=== PATIENT | male | born 1980 | race Caucasian/White ===

== ENCOUNTER 2021-07-16 09:51 | Outpatient (REF) | payer BC, SELFPAY ==
[2021-07-16 12:01] LABS: Alanine Aminotransferase 28 U/L (0-40); Anion Gap 12 (12-20); Aspartate Amino Transferase 22 U/L (5-37); Blood Urea Nitrogen 12 mg/dL (9-16); Calcium 9.6 mg/dL (8.4-10.2); Carbon Dioxide 31 mmol/L (22-29); Chloride 99 mmol/L (96-108); Cholesterol 239 mg/dL; Estimated Glomerular Filt Rate > 60; Glucose Fasting 96 mg/dL (60-99); HDL Cholesterol 53 mg/dL; LDL Cholesterol Calculated 167 mg/dl; Sodium 138 mmol/L (135-145); Triglycerides 98 mg/dL
== END 2021-07-16 09:52 | disposition home or self-care (01) ==
LOC: HO.HMGCLDS 09:51
PROVIDERS: PCP Internal Medicine; Visit Provider Internal Medicine
DX: Z00.01 Encounter for general adult medical examination with abnormal findings (principal); E78.5 Hyperlipidemia, unspecified; H81.02 Meniere's disease, left ear; I10 Essential (primary) hypertension; L40.9 Psoriasis, unspecified
CPT/HCPCS: 36415; 80048; 80061; 84450; 84460

== ENCOUNTER 2022-10-26 10:19 | Outpatient (REF) | payer BC, SELFPAY ==
[2022-10-26 11:56] LABS: Cholesterol 240 mg/dL; Glucose Fasting 99 mg/dL (60-99); HDL Cholesterol 46 mg/dL; LDL Cholesterol Calculated 174 mg/dl; Triglycerides 102 mg/dL; Vitamin D 25-OH Total 68.3 ng/mL (>30)
== END 2022-10-26 10:20 | disposition home or self-care (01) ==
LOC: HO.HMGCLDS 10:19
PROVIDERS: PCP Internal Medicine; Visit Provider Internal Medicine
DX: Z00.01 Encounter for general adult medical examination with abnormal findings (principal); E78.5 Hyperlipidemia, unspecified
CPT/HCPCS: 36415; 80061; 82306; 82947

== ENCOUNTER 2024-01-12 07:57 | Outpatient (AMB) | payer BC, SELFPAY ==
[2024-01-12 07:59] VITALS: BP 120/70; PULSE 75; O2SAT 96; BMI 26.0
--- NOTE | 2024-01-12 07:59 | A.OFFPC_ITS ---
Vital Signs 01/12/24 07:59 Height 5 ft 7 in Weight 166 lb BMI 26.0 BP 120/70 Blood Pressure Location Rt brachial Position Sitting Pulse 75 Pulse Source Pulse Oximeter Pulse Oximetry (%) 96 Oxygen Delivery Method Room Air Intake Visit Reasons: Adult Annual Exam Intake Note: Pt is here today for PE. Allergies penicillin V Adverse Reaction (Unknown, Verified 01/12/24 08:21) unknown Medication List - Last Reconciled 01/12/24 by Anabell Gutierrez MD cholecalciferol (vitamin D3) 25 mcg PO DAILY fluticasone propionate 50 mcg/actuation (Flonase Allergy Relief) 1 spray intranasal DAILY loratadine 10 mg PO DAILY multivitamin 1 tab PO DAILY Tobacco use date assessed: 01/12/24 Dental Screening Dental Screen Date: 01/12/24 Did you have a dental visit in the last 12 months?: Yes Did you have a dental problem in the last 6 months where you did not have access to dental care?: No Was dental information given to patient?: Patient has dentist HPI Adult Annual Exam HPI Details 43-year-old Male here today for physical exam. He has hyperlipidemia currently not on any medications. Has not yet had his colonoscopy screening wants to do Cologuard testing. He is up-to-date with his COVID vaccination, gets yearly flu shot and up to date with his Tdap. He has Meniere's disease previously was being seen by Dr. Nassar, has not had any further episodes of dizziness or ringing but does get occasional fluctuation in his ear in his left ear. He sees [facility] for psoriasis which is controlled on medication [facility] Medical History (Updated 01/12/24 @ 08:27 by Anabell Gutierrez MD) Meniere's disease of left ear Dyslipidemia Psoriasis Surgical History H/O wisdom tooth extraction Family History Maternal Grandfather CAD (coronary artery disease) Mother Hypercholesterolemia Father Diabetes mellitus Social History (Updated 01/12/24 @ 08:34 by Anabell Gutierrez MD) Housing: Apartment Alcohol intake: current Alcohol intake frequency: 0-2 drinks per day Alcohol type: beer Patient Tobacco Use Status: Former Tobacco user Years Smoked: 15 yrs e-Cigarette/Vaping Use: Never Used Substance Use Type: Marijuana service: No Current occupational status: employed Cognitive needs: No Hearing needs: No Vision needs: Yes Questionnaire PHQ-9 Over the last 2 weeks, how often have you been bothered by any of the following problems? 1. Little interest or pleasure in doing things: not at all 2. Feeling down, depressed, or hopeless: not at all 3. Trouble falling or staying asleep, or sleeping too much: not at all 4. Feeling tired or having little energy: not at all 5. Poor appetite or overeating: not at all 6. Feeling bad about yourself - or that you are a failure or have let yourself or your family down: not at all 7. Trouble concentrating on things, such as reading the newspaper or watching television: not at all 8. Moving or speaking so slowly that other people could have noticed. Or the opposite - being so fidgety or restless that you have been moving around a lot more than usual: not at all 9. Thoughts that you would be better off or of hurting yourself in some way: not at all Total score: 0 Depression Screening Interpretation: Negative Depression Screening Done: Yes 36700 - PHQ-9 Billing: Yes Source: Developed by Drs. Pietro Holland, Fiona Claros, Kvng Vazquez and colleagues, with an educational cait from [employer]. Thrive Questionnaire Date Thrive assessed: 01/12/24 I am a: Patient What is your living situation today?: I have a steady place to live Within the past 12 months, did the food you bought not last and you didn't have the money to get more?: Never true Within the past 12 months, did you worry whether your food would run out before you got money to buy more?: Never true Do you have trouble paying for medicines?: No Do you have trouble getting transportation to medical appointments?: No Do you have trouble paying your heating and electricity bill?: No Do you have trouble taking care of your child, family member or friend?: No Do you have trouble with day-to-day activities such as bathing, preparing meals, shopping, managing finances, etc.?: No Are you currently unemployed and looking for a job?: No Are you interested in more education?: No THRIVE Score: 0 AUDIT C Alcohol Use Questionnaire (AUDIT-C) 1. How often do you have a drink containing alcohol?: 4 or more times a week 2. How many drinks containing alcohol do you have on a typical day when you are drinking?: 1 or 2 3. How often do you have six or more drinks on one occasion?: Never Total Score: 4 GEENA-7 AMB Questionnaire GEENA-7 Date GEENA - 7 assessed: 01/12/24 Feeling nervous, anxious, or on edge: 0 = Not at all Not being able to stop or control worryin = Not at all Worrying too much about different things: 0 = Not at all Trouble relaxin = Not at all Being so restless that it is hard to sit still: 0 = Not at all Becoming easily annoyed or irritable: 0 = Not at all Feeling afraid as if something awful might happen: 0 = Not at all Total GEENA-7 score (0-4 normal; 5-9 mild; 10-14 moderate; 15-21 severe): 0 Source: Developed by Drs. Pietro Holland, Fiona Claros, Kvng Vazquez and colleagues, with an educational cait from [employer]. GEENA-7 Assessment Billing GEENA-7 Assessment Tool: GEENA-7 Assessment 80448 Review of Systems Const Denies headache(s), Denies malaise and Denies weakness Eyes Details: Sees [facility] Reports irritation, Reports itchy eyes and Reports requires corrective lenses ENT Denies ear discharge, Denies otalgia, Denies headache(s), Denies hoarseness, Denies nasal congestion, Denies post nasal drip and Denies tinnitus Card Denies chest pain, Denies chest pain with activity, Denies irregular heart rhythm, Denies lightheadedness, Denies dyspnea and Denies dyspnea on exertion Resp Denies cough, Denies pain on inspiration, Denies dyspnea, Denies dyspnea on exertion and Denies wheezing GI Denies abdominal pain, Denies melena, Denies hematochezia, Denies change in bowel habits and Denies heartburn Denies hematuria, Denies difficulty urinating, Denies penile discharge and Denies testicular mass Musc Reports no additional complaints Skin/Breast Reports as per HPI Neuro Reports no additional complaints, Denies headache(s), Denies lack of coordination, Denies focal weakness, Denies Other visual disturbances, Denies convulsions, Denies Sensory deficit (Neuro), Denies paresthesias and Denies weakness Psych Reports no additional complaints Endo Reports no additional complaints Selvin/Lymph Reports no additional complaints Aller/Immun Reports itchy eyes and Denies wheezing Physical exam (Primary Care) Vital Signs: Last Vital Signs Pulse 75 01/12/24 07:59 BP 120/70 01/12/24 07:59 Pulse Ox 96 01/12/24 07:59 Oxygen Delivery Method Room Air 01/12/24 07:59 BMI result Body Mass Index 26.0 Tobacco/Smoking Status: Tobacco use Status Tobacco use date assessed 01/12/24 01/12/24 08:04 Patient Tobacco Use Status Former Tobacco user 01/12/24 08:04 e-Cigarette/Vaping Use Never Used 01/12/24 08:04 Depression Screening Interpretation: Negative Thrive Assessment: Date of Thrive Assessment Date Thrive assessed 10/26/22 01/12/24 08:04 Const General: cooperative, no acute distress and alert Orientation/consciousness: patient oriented x3 HENMT Other: Some fluctuating hearing in left ear, no dizziness Head: Yes normocephalic Ears: hearing grossly normal bilaterally, external ears normal, TM's normal bilaterally and EAC's normal General nose exam: Normal external nose present, Normal nasal mucous membranes and turbinates present and No nasal discharge present Face and sinus: Yes sinuses nontender and Yes face symmetric Mouth: Normal oral and palatal mucosa present, lip normal, tongue normal, oropharynx normal and moist mucous membranes Teeth and gingiva: dentition normal and gingiva normal Throat: Yes posterior oropharynx normal Eyes Conjunctivae: conjunctivae normal Sclerae: sclerae normal Pupils: Equal, round and reactive pupils present EOM: EOMs intact bilaterally Neck Neck: Yes full ROM and Yes no lymphadenopathy Thyroid: Thyroid normal Carotids: normal carotid upstroke Lymphatic: no lymphadenopathy noted Chest Chest palpation & inspection: normal inspection of the chest Resp Effort & Inspection: normal respiratory effort and able to speak in complete sentences Auscultation: clear to auscultation bilaterally Cardio Rate: regular rate Rhythm: regular rhythm Heart sounds: S1 normal heart sound present and S2 normal heart sound present GI Inspection: Yes normal to inspection Palpation (GI): Soft to palpation Auscultation: normal bowel sounds General: Yes no CVA tenderness Male General Exam: Yes normal external exam, No hernia and No inguinal lymphadenopathy Back/Spine/Pelvis Back: no CVA tenderness Skin Other: erythematous scaly patch on elbow, lower back Neuro General: patient oriented x3, gait normal, moves all extremities, no focal motor deficits and CN's II-XI intact bilaterally Cranial nerves: Yes Equal, round and reactive pupils present Cognition (Neuro): normal cognition Gait exam (Neuro): Normal gait present Motor exam (neuro): 5/5 motor strength present throughout Sensory Exam: No Sensory deficit (Neuro) Extrem General: Yes normal to inspection, Yes full ROM, Yes no pedal edema and Yes normal gait Psych Appearance: grossly normal and well kempt Mental Status: mental status grossly normal Speech and movement: Normal speech and movement present Affect: normal affect Attitude: cooperative Thought process: Normal thought process present Thought content: Normal thought content present Assessment and Plan Assessment & Plan (1) Annual visit for general adult medical examination with abnormal findings: Code(s): Z00.01 - Encounter for general adult medical examination with abnormal findings Plan: Will check appropriate labs. Continue regular dental visit every 6 months and regular eye exams, sees [facility]. Instructed to do self-testicular exam check for any mass, up-to-date with his vaccinations due for colon cancer screening, patient would like to do Cologuard testing but will check with insurance 1st if covered, and will let me know (2) Dyslipidemia: Code(s): E78.5 - Hyperlipidemia, unspecified Plan: Fasting lipid panel ordered. Stressed importance of following low-cholesterol diet and getting regular exercise (3) Encounter for screening for diabetes mellitus: Code(s): Z13.1 - Encounter for screening for diabetes mellitus Plan: Fasting blood sugar ordered (4) Meniere's disease of left ear: Comment: sees Dr Hugo Nassar Code(s): H81.02 - Meniere's disease, left ear Plan: Currently not taking Maxzide and nortriptyline anymore, asymptomatic (5) Psoriasis: Comment: Followed at [facility] Code(s): L40.9 - Psoriasis, unspecified Plan: Followed by [facility] Orders: Orders Aspartate Amino Transferase Today E78.5 - Hyperlipidemia, unspecified, Z13.1 - Encounter for screening for diabetes mellitus Basic Metabolic Panel Fasting Today E78.5 - Hyperlipidemia, unspecified, Z13.1 - Encounter for screening for diabetes mellitus Vitamin D 25-OH Total Today E78.5 - Hyperlipidemia, unspecified, Z13.1 - Encounter for screening for diabetes mellitus Lipid Panel Today E78.5 - Hyperlipidemia, unspecified, Z13.1 - Encounter for screening for diabetes mellitus Alanine Aminotransferase Today E78.5 - Hyperlipidemia, unspecified, Z13.1 - Encounter for screening for diabetes mellitus Coding Level of Care Code Est Pt Prev Care 40-64y(74803) Diagnoses Annual visit for general adult medical examination with abnormal findings Z 00.01 Dyslipidemia E78.5 Encounter for screening for diabetes mellitus Z13.1 Meniere's disease of left ear H81.02 Psoriasis L40.9 Additional Codes GEENA-7 Assessment Billing - GEENA-7 Assessment Tool: GEENA-7 Assessment 51100 ([id number])
== END 2024-01-12 08:43 | disposition home or self-care (01) ==
PROVIDERS: PCP Internal Medicine; Visit Provider Internal Medicine
DX: Z00.00 Encounter for general adult medical examination without abnormal findings (principal); E78.5 Hyperlipidemia, unspecified; Z13.1 Encounter for screening for diabetes mellitus; H81.02 Meniere's disease, left ear; L40.9 Psoriasis, unspecified
CPT/HCPCS: 99396

== ENCOUNTER 2024-01-12 08:44 | Outpatient (REF) | payer BC, SELFPAY ==
[2024-01-12 11:18] LABS: Alanine Aminotransferase 42 U/L (0-40); Anion Gap 14 (12-20); Aspartate Amino Transferase 29 U/L (5-37); Blood Urea Nitrogen 15 mg/dL (9-16); Calcium 9.6 mg/dL (8.4-10.2); Carbon Dioxide 27 mmol/L (22-29); Chloride 105 mmol/L (96-108); Cholesterol 251 mg/dL (<200); Estimated Glomerular Filt Rate > 60; Glucose Fasting 103 mg/dL (60-99); HDL Cholesterol 46 mg/dL (>40); LDL Cholesterol Calculated 180 mg/dL (<100); Potassium 4.6 mmol/L (3.3-5.1); Sodium 141 mmol/L (135-145); Triglycerides 129 mg/dL (<150)
[2024-01-12 11:23] LABS: Vitamin D 25-OH Total 58.3 ng/mL (>30)
== END 2024-01-12 08:45 | disposition home or self-care (01) ==
LOC: HO.HMGCLDS 08:44
PROVIDERS: PCP Internal Medicine; Visit Provider Internal Medicine
DX: E78.5 Hyperlipidemia, unspecified (principal); Z13.1 Encounter for screening for diabetes mellitus
CPT/HCPCS: 36415; 80048; 80061; 82306; 84450; 84460

== ENCOUNTER 2025-02-01 08:38 | Outpatient (REF) | payer BC, SELFPAY ==
[2025-02-01 13:39] LABS: MANUAL DIFF FLAG NO
[2025-02-01 13:51] LABS: Basophils Absolute Auto 0.1 X10*3/uL (0.0-0.2); Basophils Percent Auto 0.7 % (0-2); Eosinophils Absolute Auto 0.2 X10*3/uL (0.0-0.4); Eosinophils Percent Auto 2.5 % (0-4); Hematocrit 45.4 % (42.0-52.0); Hemoglobin 15.3 g/dl (14.0-18.0); Imm Gran Abs Auto 0.03 X10*3/uL (0.00-0.03); Imm Gran Pct Auto 0.4 % (0.0-0.4); Lymphocytes Absolute Auto 1.7 X10*3/uL (1.2-4.9); Lymphocytes Percent Auto 22.3 % (20-40); Mean Corpuscular HGB Conc 33.7 g/dl (31.0-36.0); Mean Corpuscular Hemoglobin 31.5 pg (27.0-33.0); Mean Corpuscular Volume 93.6 fL (80.0-98.0); Monocytes Absolute Auto 0.7 X10*3/uL (0.1-1.2); Monocytes Percent Auto 9.6 % (2-11); Neutrophils Absolute Auto 4.9 x10*3/uL (2.0-8.3); Neutrophils Percent Auto 64.5 % (45-73); Platelet Count 256 X10*3/uL (160-400); Red Blood Count 4.85 X10*6/uL (4.60-5.80); Red Cell Distribution Width 12.9 % (11.0-16.0); White Blood Count 7.6 X10*3/uL (4.8-10.8)
[2025-02-01 14:06] LABS: Estimated Average Glucose 108 mg/dL; Hemoglobin A1c % 5.4 % (<6.0)
[2025-02-01 14:15] LABS: Alanine Aminotransferase 33 U/L (0-40); Anion Gap 10 (12-20); Aspartate Amino Transferase 29 U/L (5-37); Blood Urea Nitrogen 14 mg/dL (9-16); Calcium 9.4 mg/dL (8.4-10.2); Carbon Dioxide 29 mmol/L (22-29); Chloride 103 mmol/L (96-108); Cholesterol 243 mg/dL (<200); Estimated Glomerular Filt Rate > 60; Glucose Fasting 93 mg/dL (60-99); HDL Cholesterol 47 mg/dL (>40); LDL Cholesterol Calculated 171 mg/dL (<100); Potassium 4.3 mmol/L (3.3-5.1); Sodium 138 mmol/L (135-145); Triglycerides 125 mg/dL (<150)
[2025-02-01 14:31] LABS: Vitamin D 25-OH Total 67.5 ng/mL (>30)
== END 2025-02-01 08:39 | disposition home or self-care (01) ==
LOC: HO.HMGCLDS 08:38
PROVIDERS: PCP Internal Medicine; Visit Provider Internal Medicine
DX: Z00.01 Encounter for general adult medical examination with abnormal findings (principal); B35.1 Tinea unguium; L40.9 Psoriasis, unspecified; H81.02 Meniere's disease, left ear; E78.5 Hyperlipidemia, unspecified; Z71.89 Other specified counseling; Z86.39 Personal history of other endocrine, nutritional and metabolic disease; Z13.1 Encounter for screening for diabetes mellitus
CPT/HCPCS: 36415; 80048; 80061; 82306; 83036; 84450; 84460; 85025; 96127

== ENCOUNTER 2025-02-01 08:38 | Outpatient (AMB) | payer BC, SELFPAY ==
--- NOTE | 2025-02-01 08:44 | A.OFFPC_ITS ---
Vital Signs 02/01/25 08:47 Height 5 ft 6 in Weight 165 lb 4 oz BMI 26.7 BP 138/78 Blood Pressure Location Rt brachial Position Sitting Pulse 64 Pulse Source Pulse Oximeter Temp 98.1 F Temp Source Oral Pulse Oximetry (%) 97 Oxygen Delivery Method Room Air Intake Visit Reasons: PE Intake Note: Pt is here for PE, Cologuard- 04/13/24. Allergies penicillin V Adverse Reaction (Unknown, Verified 02/01/25 09:07) unknown Medication List - Last Reconciled 02/01/25 by Anabell Gutierrez MD cholecalciferol (vitamin D3) 25 mcg PO DAILY fluticasone propionate 50 mcg/actuation (Flonase Allergy Relief) 1 spray intranasal DAILY loratadine 10 mg PO DAILY multivitamin 1 tab PO DAILY tapinarof 1% (Vtama) 1 appl topical DAILY Tobacco use date assessed: 02/01/25 Dental Screening Dental Screen Date: 02/01/25 Did you have a dental visit in the last 12 months?: Yes Did you have a dental problem in the last 6 months where you did not have access to dental care?: No Was dental information given to patient?: Patient has dentist HPI PE HPI Details 44-year-old male with history of psorias is, here today for his physical exam. He is being seen at [facility], for his psoriasis as well as getting treatment for onychomycotic toenails both feet, currently taking fluconazole twice a day week. He has history dyslipidemia, tries to control it through diet and exercise. He is up-to-date with his colon cancer screening, with a negative Cologuard done [facility] Medical History (Updated 02/01/25 @ 09:14 by Anabell Gutierrez MD) Onychomycosis Meniere's disease of left ear Dyslipidemia Psoriasis Surgical History H/O wisdom tooth extraction Family History Maternal Grandfather CAD (coronary artery disease) Mother Hypercholesterolemia Father Diabetes mellitus Social History Housing: Apartment Alcohol intake: current Alcohol intake frequency: 0-2 drinks per day Alcohol type: beer Patient Tobacco Use Status: Former Tobacco user Years Smoked: 15 yrs e-Cigarette/Vaping Use: Never Used Substance Use Type: Marijuana service: No Current occupational status: employed Cognitive needs: No Hearing needs: No Vision needs: Yes Questionnaire PHQ-9 Over the last 2 weeks, how often have you been bothered by any of the following problems? 1. Little interest or pleasure in doing things: not at all 2. Feeling down, depressed, or hopeless: not at all 3. Trouble falling or staying asleep, or sleeping too much: not at all 4. Feeling tired or having little energy: not at all 5. Poor appetite or overeating: not at all 6. Feeling bad about yourself - or that you are a failure or have let yourself or your family down: not at all 7. Trouble concentrating on things, such as reading the newspaper or watching television: not at all 8. Moving or speaking so slowly that other people could have noticed. Or the opposite - being so fidgety or restless that you have been moving around a lot more than usual: not at all 9. Thoughts that you would be better off or of hurting yourself in some way: not at all Total score: 0 Depression Screening Interpretation: Negative Depression Screening Done: Yes 00845 - PHQ-9 Billing: Yes Source: Developed by Drs. Pietro Holland, Fiona Claros, Kvng Vazquez and colleagues, with an educational cait from [employer]. Thrive Questionnaire Date Thrive assessed: 01/12/24 I am a: Patient What is your living situation today?: I have a steady place to live Within the past 12 months, did the food you bought not last and you didn't have the money to get more?: Never true Within the past 12 months, did you worry whether your food would run out before you got money to buy more?: Never true Do you have trouble paying for medicines?: No Do you have trouble getting transportation to medical appointments?: No Do you have trouble paying your heating and electricity bill?: No Do you have trouble taking care of your child, family member or friend?: No Do you have trouble with day-to-day activities such as bathing, preparing meals, shopping, managing finances, etc.?: No Are you currently unemployed and looking for a job?: No Are you interested in more education?: No Please select the resources that you would like help with: None Currently or been in a relationship where the following occur: No concerns reported THRIVE Score: 0 AUDIT C Alcohol Use Questionnaire (AUDIT-C) 1. How often do you have a drink containing alcohol?: 4 or more times a week 2. How many drinks containing alcohol do you have on a typical day when you are drinking?: 3 or 4 3. How often do you have six or more drinks on one occasion?: Never Total Score: 5 GEENA-7 AMB Questionnaire GEENA-7 Date GEENA - 7 assessed: 01/12/24 Feeling nervous, anxious, or on edge: 0 = Not at all Not being able to stop or control worryin = Not at all Worrying too much about different things: 0 = Not at all Trouble relaxin = Not at all Being so restless that it is hard to sit still: 0 = Not at all Becoming easily annoyed or irritable: 0 = Not at all Feeling afraid as if something awful might happen: 0 = Not at all Total GEENA-7 score (0-4 normal; 5-9 mild; 10-14 moderate; 15-21 severe): 0 Source: Developed by Drs. Pietro Holland, Fiona Claros, Kvng Vazquez and colleagues, with an educational cait from [employer]. GEENA-7 Assessment Billing GEENA-7 Assessment Tool: GEENA-7 Assessment 04867 Review of Systems Const Denies headache(s), Denies malaise and Denies weakness Eyes Details: Goes to [facility] eye care Reports requires corrective lenses ENT Details: Dental prophylaxis every 6 months Denies ear discharge, Denies otalgia, Denies headache(s), Denies hoarseness, Denies nasal congestion, Denies post nasal drip and Denies tinnitus Card Denies chest pain, Denies chest pain with activity, Denies irregular heart rhythm, Denies lightheadedness, Denies dyspnea and Denies dyspnea on exertion Resp Denies cough, Denies pain on inspiration, Denies dyspnea, Denies dyspnea on exertion and Denies wheezing GI Denies abdominal pain, Denies melena, Denies hematochezia, Denies change in bowel habits and Denies heartburn Denies hematuria, Denies difficulty urinating, Denies penile discharge and Denies testicular mass Musc Reports no additional complaints Skin/Breast Details: Followed at [facility] Reports as per HPI Neuro Reports no additional complaints, Denies headache(s), Denies lack of coordination, Denies focal weakness, Denies Other visual disturbances, Denies convulsions, Denies Sensory deficit (Neuro), Denies paresthesias and Denies weakness Psych Reports no additional complaints Endo Reports no additional complaints Selvin/Lymph Reports no additional complaints Aller/Immun Denies wheezing Physical exam (Primary Care) Vital Signs: Last Vital Signs Temp 98.1 F 02/01/25 08:47 Pulse 64 02/01/25 08:47 BP 138/78 02/01/25 08:47 Pulse Ox 97 02/01/25 08:47 Oxygen Delivery Method Room Air 02/01/25 08:47 BMI result Body Mass Index 26.7 Tobacco/Smoking Status: Tobacco use Status Tobacco use date assessed 02/01/25 02/01/25 08:52 Patient Tobacco Use Status Former Tobacco user 02/01/25 08:44 e-Cigarette/Vaping Use Never Used 02/01/25 08:44 PHQ-9: PHQ-9 Score PHQ-9: Total score 0 02/01/25 09:30 Depression Screening Interpretation: Negative Thrive Assessment: Date of Thrive Assessment Date Thrive assessed 01/12/24 02/01/25 08:44 Currently or been in a relationship where the following occur: No concerns reported Const General: cooperative, no acute distress and alert Orientation/consciousness: patient oriented x3 HENMT Other: Some fluctuating hearing in left ear, no dizziness Head: Yes normocephalic Ears: hearing grossly normal bilaterally, external ears normal, TM's normal bilaterally and EAC's normal General nose exam: Normal external nose present and Normal nasal mucous membranes and turbinates present Face and sinus: Yes face symmetric Mouth: Normal oral and palatal mucosa present, oropharynx normal and moist mucous membranes Eyes Conjunctivae: conjunctivae normal Sclerae: sclerae normal Pupils: Equal, round and reactive pupils present EOM: EOMs intact bilaterally Neck Neck: Yes full ROM and Yes no lymphadenopathy Thyroid: Thyroid normal Carotids: normal carotid upstroke Lymphatic: no lymphadenopathy noted Chest Chest palpation & inspection: normal inspection of the chest Resp Effort & Inspection: normal respiratory effort and able to speak in complete sentences Auscultation: clear to auscultation bilaterally Cardio Rate: regular rate Rhythm: regular rhythm Heart sounds: S1 normal heart sound present and S2 normal heart sound present GI Inspection: Yes normal to inspection Palpation (GI): Soft to palpation Auscultation: normal bowel sounds General: Yes no CVA tenderness Male General Exam: Yes normal external exam, No hernia and No inguinal lymphadenopathy Back/Spine/Pelvis Back: no CVA tenderness Skin Other: erythematous scaly patch on elbow, lower back Neuro General: patient oriented x3, gait normal, moves all extremities, no focal motor deficits and CN's II-XI intact bilaterally Cranial nerves: Yes Equal, round and reactive pupils present Cognition (Neuro): normal cognition Gait exam (Neuro): Normal gait present Motor exam (neuro): 5/5 motor strength present throughout Sensory Exam: No Sensory deficit (Neuro) Extrem General: Yes normal to inspection, Yes full ROM, Yes no pedal edema and Yes normal gait Psych Appearance: grossly normal and well kempt Mental Status: mental status grossly normal Speech and movement: Normal speech and movement present Affect: normal affect Attitude: cooperative Thought process: Normal thought process present Thought content: Normal thought content present Results Reviewed Results Reviewed: suzan: Luis DanielGarrison Age/Sex: 43/M : 1980 Unit#: [id number] Attend Dr: Anabell Gutierrez MD Re01/12/24 Status: DEP REF Location: [facility] Disch: SPEC : [id number] DOLORES: 01/12/24 STATUS: COMP REQ : [id number] RECD: 01/12/[address]: Anabell Gutierrez MD COMP: 01/12/24 ENTERED: 01/12/[address]: ORDERED: Met Prof Fast, AST, ALT, Lipid Panel, Vitamin D 25-OH Test Result Flag Reference Sodium 141 135-145 mmol/L Potassium 4.6 3.3-5.1 mmol/L CL 105 96-108 mmol/L CO2 27 22-29 mmol/L Gap 14 12-20 BUN 15 9-16 mg/dL Creat 0.80 0.5-1.4 mg/dL EGFR > 60 NOTE: For -[place]ian individuals, multiply the result by 1.210. Chronic Kidney Disease: Estimated GFR < 60 mL/min/1.73m2 Severe Kidney Disease: Estimated GFR < 15 mL/min/1.73m2 FBS 103 H 60-99 mg/dL A fasting glucose from 100-125 mg/dl is considered impaired (pre-diabetes). CA 9.6 8.4-10.2 mg/dL AST (GOT) 29 5-37 U/L ALT (GPT) 42 H 0-40 U/L Triglyceride 129 <150 mg/dL Desirable Triglyceride: less than 150 mg/dL Borderline High Triglyceride 150-199 mg/dL High Triglyceride: 200-499 mg/dL Very High Triglyceride: greater than or equal to 5OO mg/dL Cholesterol 251 H <200 mg/dL Desirable Cholesterol: less than 200 mg/dL Borderline High Cholesterol: 200-239 mg/dL High Cholesterol: greater than 239 mg/dL LDL Calculated 180 H <100 mg/dL Desirable LDL: less than 100 mg/dL Near Optimal/Above Optimal LDL: 110-129 mg/dL Borderline High LDL: 130-159 mg/dL High LDL: 160-189 mg/dL Very High LDL: greater than or equal to 190 mg/dL HDL 46 >40 mg/dL Desirable HDL: greater than 40 mg/dL Note: This HDL assay may give artificially low results in patients with liver disease. Vit D 25-OH Tot 58.3 >30 ng/mL Health Based Reference Values* < 20 ng/mL Deficient 20-30 ng/mL Insufficient > 30 ng/mL Sufficient Coding Level of Care Code Est Pt Prev Care 40-64y(04757) Diagnoses Annual visit for general adult medical examination with abnormal findings Z00. Onychomycosis B35.1 Psoriasis L40.9 Meniere's disease of left ear H81.02 Dyslipidemia E78.5 Advanced directives, counseling/discussion Z71.89 Additional Codes GEENA-7 Assessment Billing - GEENA-7 Assessment Tool: GEENA-7 Assessment 51774 ([id number]) PHQ-9 - 06480 - PHQ-9 Billing: Yes ([id number]) Assessment & Plan Assessment & Plan (1) Annual visit for general adult medical examination with abnormal findings: Code(s): Z00.01 - Encounter for general adult medical examination with abnormal findings Plan: asting labs ordered patient. Recommended dental visit every 6 months and regular eye exams, at least every 2 years. Take adequate calcium in diet and vitamin-D 3 at 2000 IU per cap once a day, in addition to weight-bearing exercises to help maintain good muscle tone and weight control. Instructed to do self-testicular exam check for any mass. Up-to-date with his vaccinations. Up-to-date with his colon cancer screening, had a negative Cologuard done in 2023 (2) Onychomycosis: Comment: Big toes bilateral currently being seen at [facility], and on fluconazole twice a week Code(s): B35.1 - Tinea unguium Category: Medical Plan: Currently on fluconazole followed at [facility] (3) Psoriasis: Comment: Followed at [facility] Code(s): L40.9 - Psoriasis, unspecified Category: Medical Plan: Followed by [facility] (4) Meniere's disease of left ear: Comment: sees Dr Hugo Nassar Code(s): H81.02 - Meniere's disease, left ear Category: Medical Plan: Currently asymptomatic, no longer sees ENT (5) Dyslipidemia: Code(s): E78.5 - Hyperlipidemia, unspecified Category: Medical Plan: Reviewed recent fasting lipid profile with patient with her elevated total cholesterol and LDL cholesterol . Reinforced adherence to low-cholesterol diet and regular exercise, at least 30 minutes 3 to 4 times a week. Advised patient to make healthy food choices, eat more fruits, vegetables, whole grains, wild caught fish and low-fat dairy. Limit amount of meat and fried or fatty food products, as well as processed foods and fast foods. Follow-up scheduled with repeat fasting lipid panel in 6 months. (6) Advanced directives, counseling/discussion: Code(s): Z71.89 - Other specified counseling Plan: Initiated the conversation about Advanced Directives. Advanced Directives help patients prepare for current and future decisions about their medical treatment and place of care. Discussed with patient that it is a process where a patients current condition and prognosis are reviewed, their wishes for information regarding their illness are elicited, and likely medical dilemmas are presented and options discussed. Healthcare proxy form completed today. The form can be amended as needed, reviewed yearly and make changes as needed Orders: Orders Hemoglobin A1c 02/01/25 B35.1 - Tinea unguium Complete Blood Count Auto Diff 02/01/25 B35.1 - Tinea unguium Referrals Dermatology Referral B35.1 - Tinea unguium, L40.9 - Psoriasis, unspecified
[2025-02-01 08:47] VITALS: BP 138/78; PULSE 64; TEMP 36.7; O2SAT 97; BMI 26.7
== END 2025-02-01 09:26 | disposition home or self-care (01) ==
LOC: HO.HMCC 08:39
PROVIDERS: PCP Internal Medicine; Visit Provider Internal Medicine
DX: Z00.01 Encounter for general adult medical examination with abnormal findings (principal); B35.1 Tinea unguium; L40.9 Psoriasis, unspecified; H81.02 Meniere's disease, left ear; E78.5 Hyperlipidemia, unspecified; Z71.89 Other specified counseling

== ENCOUNTER 2025-04-30 11:14 | Outpatient (AMB) | payer BC, SELFPAY ==
[2025-04-30 11:20] VITALS: BP 130/80; PULSE 77; RESP 16; TEMP 36.8; O2SAT 99; BMI 26.5
--- NOTE | 2025-04-30 11:20 | MHC.PC.OV ---
Vital Signs 04/30/25 11:20 Height 5 ft 6 in Weight 164 lb BMI 26.5 BP 130/80 Blood Pressure Location Lt brachial Position Sitting Respiration 16 Pulse 77 Pulse Source Pulse Oximeter Temp 98.2 F Temp Source Oral Pulse Oximetry (%) 99 Oxygen Delivery Method Room Air Intake Visit Reasons: rectal bleeding Intake Note: Pt is here today c/o rectal bleeding since yesterday when he wipes ?hemorriods Allergies penicillin V Adverse Reaction (Unknown, Verified 02/01/25 09:07) unknown Medication List - Last Reconciled 04/30/25 by Anabell Gutierrez MD cephalexin 500 mg PO Q8H 7 days cholecalciferol (vitamin D3) 25 mcg PO DAILY fluticasone propionate 50 mcg/actuation (Flonase Allergy Relief) 1 spray intranasal DAILY guselkumab (Tremfya Pen) 100 mg subcut Q8W loratadine 10 mg PO DAILY multivitamin 1 tab PO DAILY tapinarof 1% (Vtama) 1 appl topical DAILY Tobacco use date assessed: 04/30/25 Dental Screening Dental Screen Date: 04/30/25 Did you have a dental visit in the last 12 months?: Yes Did you have a dental problem in the last 6 months where you did not have access to dental care?: No Was dental information given to patient?: Patient has dentist HPI rectal bleeding HPI Details - The patient is a 44-year-old male presenting today with a painful lump in the anorectal region. - The patient noticed a lump in the anorectal area a couple of months ago, initially thought to be a hemorrhoid. - The lump has been fluctuating in size and recently enlarged to the size of a castellanos tomato, causing significant discomfort and pain, especially at night. - The noted presence of bright red bleeding bleeding when he had a bowel movement this morning - The patient is allergic to penicillin, with no specific reaction details known. [facility] Medical History Onychomycosis Meniere's disease of left ear Dyslipidemia Psoriasis Surgical History H/O wisdom tooth extraction Family History Maternal Grandfather CAD (coronary artery disease) Mother Hypercholesterolemia Father Diabetes mellitus Social History Housing: Apartment Alcohol intake: current Alcohol intake frequency: 0-2 drinks per day Alcohol type: beer Patient Tobacco Use Status: Former Tobacco user Years Smoked: 15 yrs e-Cigarette/Vaping Use: Never Used Substance Use Type: Marijuana service: No Current occupational status: employed Cognitive needs: No Hearing needs: No Vision needs: Yes Questionnaire Thrive Questionnaire Date Thrive assessed: 01/12/24 GEENA-7 AMB Questionnaire GEENA-7 Date GEENA - 7 assessed: 01/12/24 Source: Developed by Drs. Pietro Holland, Fiona Claros, Kvng Vazquez and colleagues, with an educational cait from [employer]. Review of Systems Const All systems reviewed & are unremarkable except as noted in HPI and below Physical exam (Primary Care) Vital Signs: Last Vital Signs Temp 98.2 F 04/30/25 11:20 Pulse 77 04/30/25 11:20 Resp 16 04/30/25 11:20 BP 130/80 04/30/25 11:20 Pulse Ox 99 04/30/25 11:20 Oxygen Delivery Method Room Air 04/30/25 11:20 BMI result Body Mass Index 26.5 Tobacco/Smoking Status: Tobacco use Status Tobacco use date assessed 04/30/25 04/30/25 11:26 Patient Tobacco Use Status Former Tobacco user 04/30/25 11:26 e-Cigarette/Vaping Use Never Used 04/30/25 11:26 Thrive Assessment: Date of Thrive Assessment Date Thrive assessed 01/12/24 04/30/25 11:26 Const General: comfortable, no acute distress and alert Neck Neck: Yes full ROM, Yes no lymphadenopathy and Yes supple Cardio Rate: regular rate Rhythm: regular rhythm Heart sounds: S1 normal heart sound present and S2 normal heart sound present GI Inspection: Yes normal to inspection Palpation (GI): Soft to palpation, nontender and no guarding Auscultation: normal bowel sounds Skin Other: Nodular lesion on right side of buttock near anus, with no active drainage, tender to palpation Coding Level of Care Code Est Pt Level 4 (67877) Diagnoses Perianal abscess K61.0 Assessment & Plan Assessment & Plan (1) Perianal abscess: Code(s): K61.0 - Anal abscess Plan: Advised to keep the wound clean, taking warm?Sitz baths, using stool softeners, and eating a high-fiber diet to prevent constipation, referred to general surgery for incision and drainage of abscess. Prescription sent for cephalexin 500 mg to take 1 every 8 hours for 7 days Orders: Referrals General Surgery Referral K61.0 - Anal abscess Medications: New cephalexin 500 mg PO Q8H 21 caps 0RF 7 days
== END 2025-04-30 11:49 | disposition home or self-care (01) ==
LOC: HO.HMCC 11:14
PROVIDERS: PCP Internal Medicine; Visit Provider Internal Medicine
DX: K61.0 Anal abscess (principal)

== ENCOUNTER 2025-05-23 08:59 | Outpatient (AMB) | payer BC, SELFPAY ==
--- NOTE | 2025-05-23 09:00 | MHC.OFFVIS ---
Vital Signs 05/23/25 09:09 Height 5 ft 6 in Weight 158 lb BMI 25.5 BP 128/69 Blood Pressure Location Rt brachial Position Sitting Pulse 82 Intake Visit Reasons: Anal abscess Intake Note: Patient referred by pcp Dr. Gutierrez for Rt perianal abscess. Present for 2mo. Patient c/o: feels bumpy, enlarging painful. Finished Cephalexin course. Denies bleeding, oozing. 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 He said about 2 months ago, he had this swelling and tenderness on the right perianal area. This has that this became severe but this drained spontaneously after about 3 days. He had seen his primary care physician and was placed on antibiotics thereafter He says that this areas improved significantly. However, he still feels some point tenderness on the previous site. He denies any persistent drainage. He is healthy overall. [facility] Medical History (Updated 05/23/25 @ 09:37 by Jay Murillo MD) Perianal abscess Endolymphatic hydrops of left ear Onychomycosis Meniere's disease of left ear Dyslipidemia Psoriasis Surgical History H/O wisdom tooth extraction Family History Maternal Grandfather CAD (coronary artery disease) Mother Hypercholesterolemia Father Diabetes mellitus Social History Housing: Apartment Alcohol intake: current Alcohol intake frequency: 0-2 drinks per day Alcohol type: beer Patient Tobacco Use Status: Former Tobacco user Years Smoked: 15 yrs e-Cigarette/Vaping Use: Never Used Substance Use Type: Marijuana service: No Current occupational status: employed Cognitive needs: No Hearing needs: No Vision needs: Yes Review of Systems Const Denies chills and Denies fever(s) Card Denies chest pain, Denies dyspnea and Denies dyspnea on exertion Resp Denies cough, Denies dyspnea and Denies dyspnea on exertion GI Details: Rectal exam - small induration less than 1 cm on the right perianal area, not any opening or obvious sinus, no cellulitis, no fluctuance Denies hematochezia and Denies change in bowel habits Denies hematuria and Denies difficulty urinating Musc Denies back pain and Denies limited range of motion Neuro Denies focal weakness and Denies convulsions Psych Denies depression and Denies mood swings Physical Exam Vital Signs: Last Vital Signs Pulse 82 05/23/25 09:09 BP 128/69 05/23/25 09:09 BMI result Body Mass Index 25.5 Office Procedures Anoscopy He was in kneeling no-knife position. The anoscope was gently inserted. A full examination of the anal canal was done. He did have small hemorrhoidal columns on both the left and right side. There is no obvious induration or internal sinus. There was no bleeding. There was no induration. [id number] Assessment & Plan Assessment & Plan (1) Perianal abscess: Code(s): K61.0 - Anal abscess Category: Medical Plan: He had a perianal abscess on the right side that drained spontaneously as described above about a month and a half ago. Current exam shows a small residual induration on the area. There is no obvious fistulous disease. Anoscopy does not suggest an internal fistula. He is concerned about this recurring. I explained to him that I can not rule out an anal fistula although this has not obvious on examination. It may be that this was just a simple perianal abscess and may not recur anymore I did offer him the option of proceeding with an exam under anesthesia and possible fistulotomy and seton placement. I explained the technique of this procedure as was the risks, benefits, and alternatives. I also told him that we can just monitor him closely and I can see him in about a month to see how he is doing. After a long discussion with him, he says that he would like to just monitor this closely and call me if this recurs. He says that if that happens, he would like to proceed with an exam under anesthesia. Coding Level of Care Code New Pt Level 3 (73313) Diagnoses Perianal abscess K61.0 CPT Codes Details - CPT: 75854-[id number] ([id number])
[2025-05-23 09:09] VITALS: BP 128/69; PULSE 82; BMI 25.5
== END 2025-05-23 09:42 | disposition home or self-care (01) ==
LOC: HO.HGS 09:00
PROVIDERS: PCP Internal Medicine; Visit Provider Surgery
DX: K61.0 Anal abscess (principal)
CPT/HCPCS: 46600; 99203

== ENCOUNTER → 2025-05-23 08:59 | Outpatient (BNVA) | payer BC, SELFPAY | PROVIDERS: PCP Internal Medicine; Visit Provider Surgery | DX: K61.0 Anal abscess (principal) | CPT/HCPCS: 46600 ==

== ENCOUNTER 2025-05-27 15:37 | Outpatient (AMB) | payer BC, SELFPAY ==
[2025-05-27 15:43] VITALS: BP 124/82; PULSE 83; RESP 16; TEMP 37.4; O2SAT 98; BMI 26.0
--- NOTE | 2025-05-27 15:43 | MHC.OFFWIV ---
Intake Vital Signs 05/27/25 15:43 Height 5 ft 6 in Weight 161 lb BMI 26.0 BP 124/82 Blood Pressure Location Lt brachial Position Sitting Respiration 16 Pulse 83 Temp 99.3 F Temp Source Oral Pulse Oximetry (%) 98 Oxygen Delivery Method Room Air Intake Visit Reasons: EP allergic reaction facial swelling Patient Tobacco Use Status: Former Tobacco user Accompanied by: Self / Same As Patient Allergies penicillin V Adverse Reaction (Unknown, Verified 05/27/25 15:44) unknown Medication List - Last Reconciled 05/27/25 by Laura Alfaro NP cholecalciferol (vitamin D3) 25 mcg PO DAILY fluticasone propionate 50 mcg/actuation (Flonase Allergy Relief) 1 spray intranasal DAILY guselkumab (Tremfya Pen) 100 mg subcut Q8W loratadine 10 mg PO DAILY multivitamin 1 tab PO DAILY prednisone 20 mg PO DAILY tapinarof 1% (Vtama) 1 appl topical DAILY HPI HPI Comments History of Present Illness Details 44 y/o Male patient who presents to the walk in clinic with c/o Right sided Facial swelling and tingling since this Afternoon. Reports he bought some food (Bowl of rice and beef) at [employer] - reports in the middle of eating his food, he felt tingling and itching in his Throat. He later noticed his Face swelling, but denies Tongue swelling, SOB or wheezing. He immediately took Claritin one tablet - few hours later the swelling had reduced. He decised to come in to make sure he is not having an allergy reaction. He denies any Food Allergies, but allergic to PCN. [facility] Medical History (Updated 05/27/25 @ 16:23 by Laura Alfaro NP) Right facial swelling Perianal abscess Endolymphatic hydrops of left ear Onychomycosis Meniere's disease of left ear Dyslipidemia Psoriasis Surgical History H/O wisdom tooth extraction Family History Maternal Grandfather CAD (coronary artery disease) Mother Hypercholesterolemia Father Diabetes mellitus Social History Housing: Apartment Alcohol intake: current Alcohol intake frequency: 0-2 drinks per day Alcohol type: beer Patient Tobacco Use Status: Former Tobacco user Years Smoked: 15 yrs e-Cigarette/Vaping Use: Never Used Substance Use Type: Marijuana service: No Current occupational status: employed Cognitive needs: No Hearing needs: No Vision needs: Yes Review of Systems Const All systems reviewed & are unremarkable except as noted in HPI and below Physical Exam Vital Signs: Last Vital Signs Temp 99.3 F 05/27/25 15:43 Pulse 83 05/27/25 15:43 Resp 16 05/27/25 15:43 BP 124/82 05/27/25 15:43 Pulse Ox 98 05/27/25 15:43 Oxygen Delivery Method Room Air 05/27/25 15:43 BMI result Body Mass Index 26.0 Const General: comfortable and no acute distress Nutritional Appearance: well nourished Orientation/consciousness: patient oriented x3 HEENT Head: Yes normocephalic Ears: external ears normal and TM abnormal obstructed by cerumen bilateral General nose exam: Normal external nose present Face and sinus: Yes sinuses nontender and No erythema Face images:  1. Mild swelling present, no tongue swelling and non tender. Mouth: lip normal, tongue normal and moist mucous membranes Teeth and gingiva: dentition normal Throat: Yes uvula midline Eyes Pupils: Equal, round and reactive pupils present Resp Effort & Inspection: normal respiratory effort Auscultation: clear to auscultation bilaterally Cardio Heart sounds: S1 normal heart sound present and S2 normal heart sound present Neuro General: patient oriented x3 Cranial nerves: Yes Equal, round and reactive pupils present Assessment & Plan Assessment & Plan (1) Right facial swelling: Code(s): R22.0 - Localized swelling, mass and lump, head Plan: Ordered Prednisone. Ordered Benadrly Continue taking Claritin If symptoms worse go to ED. Medications: New diphenhydramine HCl (Benadryl Allergy) 25 mg PO BEDTIME PRN 20 tabs 0RF allergic reaction R22.0 - Localized swelling, mass and lump, head prednisone 20 mg PO DAILY 7 tabs 0RF R22.0 - Localized swelling, mass and lump, head Coding Level of Care Code Est Pt Level 4 (44349) Diagnoses Right facial swelling R22.0 Time Spent (min) 20
== END 2025-05-27 16:18 | disposition home or self-care (01) ==
PROVIDERS: PCP Internal Medicine; Visit Provider Nurse Practitioner Family
DX: R22.0 Localized swelling, mass and lump, head (principal)

== ENCOUNTER 2025-06-20 10:46 | Outpatient (REF) | payer BC, SELFPAY ==
[2025-06-20 13:34] LABS: MANUAL DIFF FLAG NO
[2025-06-20 13:45] LABS: Hematocrit 47.0 % (42.0-52.0); Hemoglobin 15.6 g/dl (14.0-18.0); Imm Gran Abs Auto 0.03 X10*3/uL (0.00-0.03); Imm Gran Pct Auto 0.4 % (0.0-0.4); Lymphocytes Absolute Auto 1.5 X10*3/uL (1.2-4.9); Mean Corpuscular HGB Conc 33.2 g/dl (31.0-36.0); Mean Corpuscular Hemoglobin 31.5 pg (27.0-33.0); Mean Corpuscular Volume 94.9 fL (80.0-98.0); NRBC Abs Auto 0.000 X10*3/uL (0.0-0.012); NRBC Pct Auto 0.0 /100WBC (0.0-0.2); Platelet Count 240 X10*3/uL (160-400); Red Blood Count 4.95 X10*6/uL (4.60-5.80); White Blood Count 7.3 X10*3/uL (4.8-10.8)
[2025-06-20 13:58] LABS: Alanine Aminotransferase 46 U/L (0-40); Albumin Level 4.9 g/dL (3.5-5.0); Alkaline Phosphatase 60 U/L (39-117); Anion Gap 13 (12-20); Aspartate Amino Transferase 30 U/L (5-37); Blood Urea Nitrogen 14 mg/dL (9-16); Calcium 9.5 mg/dL (8.4-10.2); Carbon Dioxide 28 mmol/L (22-29); Chloride 104 mmol/L (96-108); Estimated Glomerular Filt Rate > 60; Potassium 4.4 mmol/L (3.3-5.1); Sodium 141 mmol/L (135-145); Total Protein 7.5 g/dL (6.5-8.0)
[2025-06-21 03:34] LABS: HBS Num1 3.19 mIU/mL (0-7.99); HBc Num1 0.06 S/CO (0.00-0.79); HBsAGNum1 0.34 S/CO (0.00-0.99); Hepatitis B Surface Antigen Negative (Negative); ~HepC Num1 0.06 S/CO (0.00-0.79); ~Hepatitis B Surface Antibody NONREACTIVE (Nonreactive); ~Hepatitis C Antibody Nonreactive (Nonreactive)
[2025-06-23 08:54] LABS: TS Negative Control Passed; TS Panel A 0; TS Panel B 1; TS Positive Control Passed; TSpotTB Negative (Negative)
== END 2025-06-20 10:47 | disposition home or self-care (01) ==
LOC: HO.HMGCLDS 10:46
PROVIDERS: PCP Internal Medicine; Visit Provider Physician Assistant
DX: Z11.1 Encounter for screening for respiratory tuberculosis (principal); Z79.899 Other long term (current) drug therapy
CPT/HCPCS: 36415; 80053; 82248; 85025; 86481; 86704; 86706; 86803; 87340